=== PATIENT | female | born 1960 | race Caucasian/White ===

== ENCOUNTER → 2018-05-07 | Outpatient (CLI) | payer OTHER ==
[~2018-05-07] MED LIST: METAMUCIL0.4 GM PO
== END ==
LOC: M.CT 15:25
DX: K57.32 Diverticulitis of large intestine without perforation or abscess without bleeding (principal); K76.89 Other specified diseases of liver; N20.0 Calculus of kidney; J98.11 Atelectasis

== ENCOUNTER 2018-06-17 09:37 | Inpatient (IN) | payer OTHER ==
[~2018-06-17] VITALS: Ht 175.3 cm; Wt 74.8 kg
--- NOTE | ~2018-06-17 | CON ---
[facility] [address] [place] [address] CONSULTATION Name: RUTH JACOBS Room: [address] IN M.R.#: [id number] Admission: 06/17/18 Attend Phys: Ian Mccollum Discharge: 06/21/18 Date of : 56 Report #: [id number] THIS REPORT FOR: //name// CC: GUSTAVO Ribeiro MD DATE OF SERVICE: 06/18/2018 REFERRING PHYSICIAN: Vanda López M.D. REASON FOR CONSULTATION: Diverticulitis. IMPRESSION: Recurrent sigmoid diverticulitis, with a strong family history of the same. No history to kidney stones, recurrent kidney stones without evidence for obstruction. RECOMMENDATIONS: 1. Agree with the patient being admitted to the hospital for failing outpatient oral treatment. 2. Surgical consultation will be necessary for possibly elective colon resection in the future due to the poor nature of the same. 3. We will have the dietitian instruct on low-residue diet for the duration of the treatment. 4. I have discussed these plans and recommendations with the patient as well and she is agreeable to the same. 5. We will request records from previous colonoscopy that has been performed in the last couple of years and make sure she will likely have repeat colonoscopy to tattoo the proximal and distal extents of her severe diverticular disease in anticipation of surgical intervention for the same. I have discussed these plans with the patient as well and she is agreeable to the same. HISTORY OF PRESENT ILLNESS: The patient is a very pleasant 58-year-old white female who has been battling problems with diverticulitis since the last couple of months. She states that she was usually having problems towards the first part of April and then eventually went to the hospital for evaluation and underwent laboratory testing and CT scan, which revealed evidence for diverticulitis. She was treated with Cipro and Flagyl for 10 days, starting on 05/07/2018. She completed a course of the same and then had recurrent relapsing issues on 06/07/2018 and again was treated with Cipro and Flagyl for another 10 days. However, she was not getting any better. She also had problems with fevers and chills as well as some constipation. She has a family history of diverticular disease with her sister having had a perforation, her brother having had a colon resection and a paternal [place] [address] CONSULTATION Name: RUTH JACOBS Room: [address] IN [facility].#: [id number] Admission: 06/17/18 Attend Phys: Ian Mccollum Discharge: 06/21/18 Date of : 56 Report #: [id number] the same. She has undergone endoscopic studies of her lower GI tract in the past and thinks her last examination was a couple of years ago, with probably findings of diverticular disease. She was admitted to the hospital now because of problems with persistent issues. She is admitted to the hospital for further evaluation and treatment. The patient also noted that she was having more constipation. She took Dulcolax for 4 days, about one tablet daily for 4 days and did not have any output. I gave her magnesium citrate on the night of admission and she has been passing stool. ALLERGIES: None. MEDICATIONS: Include psyllium husk. PAST MEDICAL HISTORY: Remarkable for recurrent diverticulitis, she had a history of kidney stones. She has cyst on the liver which was removed in the past, tonsillectomy as well. SOCIAL HISTORY: The patient smokes half pack a day, drinks on a weekly basis. FAMILY HISTORY: As above. PHYSICAL EXAMINATION: GENERAL: A pleasant 58-year-old white female, who is awake and alert. CARDIOPULMONARY EXAMINATION: Revealed a regular rate and rhythm. LUNGS: Clear. ABDOMEN: Bloated. She was mildly tender in the lower quadrants. No rebound or guarding noted. LABORATORY DATA: Laboratory tests revealed a white count of 10.0, hemoglobin 13.0, platelet count 404,000, MCV is 89.5 and RDW 13.9. Sodium 142, potassium 4.1, chloride 106, bicarbonate 27, BUN 7, creatinine 0.2 and GFR . Total bilirubin 0.4, alkaline phosphatase 111, AST 13 and ALT 17. Her albumin is 3.5. CT scan of the abdomen and pelvis done on 06/17/2018 revealed circumferential mural thickening and mild pericolonic soft tissue stranding around the proximal sigmoid colon, extending in the distal descending colon secondary to either residual or recurrent diverticulitis. DISCUSSION: 1. At the present time, it is felt that the patient has relapsing diverticulitis in the same segment. She will need to be treated aggressively and if she is not getting better, she may need to have surgical intervention. We will also get her seen by dietitian for a low-residue diet, but keep her on some MiraLax to keep her bowels moving. [address] [address] CONSULTATION Name: RUTH JACOBS Room: [address] IN [facility]#: [id number] Admission: 06/17/18 Attend Phys: Ian Mccollum Discharge: 06/21/18 Date of : 56 Report #: [id number] 2. Otherwise set up for colonoscopy should need at least 10-14 days of antibiotics upon discharge and then probably should undergo repeat CT scan prior to the colonoscopy that should be done towards the end of this year. We will proceed with treating her at this point in time and set things . By: [id number] [id number] Sandhu DO /roshan
[2018-06-17 09:45] VITALS: BP 109/79
[2018-06-17] MEDS ORDERED: METAMUCIL0.4 GM PO (09:49)
[2018-06-17 10:40] LABS: ABSOLUTE BASOPHILS 0.1 thou/uL (0.0-0.2); ABSOLUTE EOSINOPHILS 0.1 thou/uL (0.0-0.7); ABSOLUTE LYMPHOCYTES 1.5 thou/uL (0.8-5.3); ABSOLUTE MONOCYTES 0.4 thou/uL (0.0-1.2); ABSOLUTE NEUTROPHILS 7.9 thou/uL (1.6-8.1); BASOPHILS 0.8 %; HEMATOCRIT 39.8 % (37.0-47.0); LYMPHOCYTES 15.1 %; MCH 29.3 pg (26.0-34.0); MCHC 32.7 g/dL (28.0-37.0); MCV 89.5 fL (80.0-100.0); MONOCYTES 3.8 %; MPV 7.2 fl. (7.2-11.1); NUCLEATED RBCS 0 /100WBC; PLATELET COUNT* 404 thou/uL (150-400); POLYS 79.3 %; RBC 4.44 mil/uL (4.20-5.00); RDW-CV 13.9 % (10.5-14.5)
[2018-06-17 10:46] LABS: CALCIUM 9.6 mg/dL (8.5-10.1); CREATININE 0.8 mg/dL (0.6-1.3); POTASSIUM 4.1 mmol/L (3.5-5.1)
[2018-06-17 10:51] LABS: ALBUMIN 3.5 g/dL (3.4-5.0); TOTAL BILIRUBIN 0.4 mg/dL (<0.1-1.0); TOTAL PROTEIN 7.4 g/dL (6.4-8.2)
[2018-06-17 10:59] LABS: URINE BILIRUBIN NEGATIVE (Negative); URINE BLOOD TRACE (Negative); URINE CLARITY CLEAR; URINE COLOR YELLOW; URINE GLUCOSE-RANDOM NEGATIVE (Negative); URINE KETONES 2+ (Negative); URINE LEUKOCYTES-REFLEX TRACE (Negative); URINE NITRITE-REFLEX NEGATIVE (Negative); URINE PROTEIN NEGATIVE (Negative); URINE SPECIFIC GRAVITY 1.025 (1.005-1.030); URINE UROBILINOGEN 0.2 E.U./dl (0.2-1.0)
[2018-06-17 11:13] LABS: BACTERIA-REFLEX None Seen /HPF (None Seen); CASTS None Seen /LPF (None Seen); CRYSTALS None Seen /LPF (None Seen); MUCUS 0-3 Light strn/LPF (None Seen); SQUAMOUS 0-3 Few /LPF (0-3); URINE RBC None Seen /HPF (0-2); URINE WBC-REFLEX 0-5 Rare /HPF (0-5)
--- NOTE | 2018-06-17 15:39 | NUR ---
PT GIVEN ICE WATER PER REQUEST AND APPROVAL BY DR. GAR FOR CLEAR LIQUIDS ONLY.
[2018-06-17 20:00] VITALS: BP 112/72
[2018-06-17 20:15] VITALS: BP 124/64
--- NOTE | 2018-06-18 06:00 | NUR ---
PATIENT ARRIVED ON THE FLOOR ABOUT 1999 FROM ER. PATIENT ADMISSION HISTORY AND ASSEMENT WAS COMPLETED CHARTED. IV FLUIDS AND ANTIBIOTICS WERE GIVEN ORDERED. PATIENT HAS NOT REQUESTED ANY PAIN MEDICINE THIS SHIFT. PATIENT TOLERATING CLEAR LIQUIDS. PATIENT DID NOT DRINK HER MAG CITRATE. WILL CONTINUE TO MONITOR.
[2018-06-18 07:40] VITALS: BP 116/74
--- NOTE | 2018-06-18 11:44 | NUR ---
SW met with pt to complete initial assessment, introduce self, and SW role. Pt alert, oriented, pleasant. Pt lives at home with her and is independent and active. 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 Pt does not anticipate any dc needs. SW to continue to follow.
[2018-06-18 16:00] VITALS: BP 120/68
--- NOTE | 2018-06-18 18:58 | NUR ---
PATIENT STARTED ON LOW RESIDUE DIET PER GI THIS EVENING, PATIENT ATE ONLY SMALL AMOUNT. IV LEAKING TO LEFT AC THIS AM. ATTEMPTED X [address] IV WITH NO SUCCESS. IV PLACED VIA INFUSION WITH US TO RIGHT UPPER ARM. IVF AND SCHED ABX INFUSED. PATIENT CALLING OUT SEVERAL HOURS LATER STATING ARM WAS SWOLLEN. IV NOTED TO BE INFILTRATED, DC'D. PACU NURSE ATTEMPTED IV AND IV PLACED TO RIGHT HAND. PRN VICODIN GIVEN X 1, NO FURTHER COMPLAINTS OF PAIN NOTED. PATIENT STILL DRINKING MAG CITRATE, NO BM NOTED. SURGERY CONS PLACED AND PATIENT SEEN, NO SURICAL INTERVENTIONS NOTED.
[2018-06-18 21:00] VITALS: BP 101/63
[2018-06-19 05:03] LABS: ABSOLUTE BASOPHILS 0.1 thou/uL (0.0-0.2); ABSOLUTE EOSINOPHILS 0.3 thou/uL (0.0-0.7); ABSOLUTE MONOCYTES 0.4 thou/uL (0.0-1.2); ABSOLUTE NEUTROPHILS 3.4 thou/uL (1.6-8.1); BASOPHILS 1.2 %; HEMOGLOBIN 11.8 gm/dL (12.0-15.0); LYMPHOCYTES 32.6 %; MCH 29.2 pg (26.0-34.0); MCHC 32.7 g/dL (28.0-37.0); MCV 89.2 fL (80.0-100.0); MONOCYTES 6.8 %; MPV 7.9 fl. (7.2-11.1); NUCLEATED RBCS 0 /100WBC; POLYS 54.4 %; RBC 4.03 mil/uL (4.20-5.00); WBC 6.2 thou/uL (4.0-11.0)
[2018-06-19 05:05] LABS: PLATELET COUNT* 324 thou/uL (150-400)
[2018-06-19 05:12] LABS: CALCIUM 8.8 mg/dL (8.5-10.1); CREATININE 0.7 mg/dL (0.6-1.3); POTASSIUM 4.3 mmol/L (3.5-5.1)
[2018-06-19 06:08] LABS: ESR (SEDRATE) 30 mm/hr (0-30)
--- NOTE | 2018-06-19 07:05 | NUR ---
PATIENT SLEPT MOST OF THE NIGHT. IV FLUIDS AND ANTIBIOTICS WERE GIVEN ORDERED. PATIENT HAD NO COMPLAINTS OF PAIN. PATIENT STATED STILL NO BOWEL MOVEMENT. WILL CONTINUE TO MONITOR.
[2018-06-19 08:00] VITALS: BP 109/67
[2018-06-19 15:34] VITALS: BP 98/61
--- NOTE | 2018-06-19 18:02 | NUR ---
PATIENT REMAINS ON FIBER RESTRICTED DIET, TOLERATING SMALL MEALS. IV SL THIS SHIFT, ABX CHANGED TO CIPRO/FLAGYL IV. PER GI PATIENT STARTED ON LUBIPROSTONE FOR CONSTIPATION. NO COMPLAINTS OF PAIN THIS SHIFT.
[2018-06-20 04:22] LABS: CREATININE 0.6 mg/dL (0.6-1.3); MAGNESIUM 2.2 mg/dL (1.8-2.4); POTASSIUM 4.9 mmol/L (3.5-5.1)
--- NOTE | 2018-06-20 06:55 | NUR ---
PATIENT SLEPT MOST OF THE NIGHT. NEW IV WAS STARTED CHARTED. IV ANTIBIOTICS WERE GIVEN ORDERED. PATIENT STATED SHE HAD TWO SMALL BOWEL MOVEMENTS ABOUT THE SIZE OF JELLY BEANS. NO COMPLAINTS OF PAIN. WILL CONTINUE TO MONITOR.
[2018-06-20 08:33] VITALS: BP 104/55
[2018-06-20] MEDS ORDERED: SENNA PLUS TAB1 EACH PO (10:27)
[2018-06-20] MEDS ORDERED: FLAGYL500 M1 PO (10:27)
[2018-06-20] MEDS ORDERED: CIPRO500 MG PO (10:27)
[2018-06-20] MEDS ORDERED: ACIDOPHILUS1 EAC4 PO (10:27)
[2018-06-20 16:00] VITALS: BP 98/54
[2018-06-20 19:45] VITALS: BP 93/50
--- NOTE | 2018-06-21 05:29 | NUR ---
PT SLEPT MOST OF SHIFT. ASSESSMENT DOCUMENTED. MEDS GIVEN PER E-OCT. PT REQUESTED IV BE TAKEN OUT AFTER ABX INFUSION STATING IV SITE WAS GETTING SORE. NO BOWEL MOVEMENT NOTED THIS SHIFT. WILL CONTINUE WITH PLAN OF CARE.
--- NOTE | 2018-06-21 06:59 | NUR ---
PT DOES NOT WANT AN IV ACCESS AT THIS TIME. SHE WOULD PREFER TO SEE IF SHE COULD GET ORAL MEDICATIONS. PT STATES SHE FEELS LIKE SHE WILL GO HOME TODAY BUT IS CONCERNED ABOUT STILL NOT HAVING A BOWEL MOVEMENT.
[2018-06-21 08:00] VITALS: BP 103/65
--- NOTE | 2018-06-21 16:22 | NUR ---
SHIFT NOTE - PT STILL ANTICIPATING DISCHARGE THIS EVENING. WAITING ON GI TO ROUND. PT STILL NOT HAD A BM. PT HAD A KUB IN ROOM THIS AFTERNOON. SPOUSE PRESENT AT BESIDE FOR MOST OF THIS SHIFT.
[2018-06-21 18:16] VITALS: BP 103/65
[2018-06-21] MEDS ORDERED: AMITIZA 24 MCG24 MC1 PO (18:24)
--- NOTE | 2018-06-21 18:30 | NUR ---
CALLED . WAITING ON GI FOR DISCHARGE SINCE YESTERDAY. DISCUSSED CASE WITH . OK FOR DISCHARGE. OK TO CALL IN RX FOR [facility] 24MCG TO [facility] RX [place], [place]. 4 OTHER RX'S GIVEN TO PT. INSTRUCTED THIS NURSE TO TELL PATIENT TO HAVE PT START MIRALAX COLON PREP IN AM. PT TO CALL HIS ANSWERING SERVICE IF NO STOOLS. DISCUSSED DISCHARGE INSTRUCTIONS WITH PT. NO QUESTIONS. IV REMOVED S DIFFICULTY. ALL BELONGINGS SENT WITH PT AND SPOUSE.
== END 2018-06-21 18:45 | disposition home or self-care (01) | DRG 392 ==
LOC: M.ERS 09:37 → M.TBA-ER 15:08 → M.3W 15:08
PROVIDERS: Internal Medicine; Internal Medicine Gastroenterology; Personal Emergency Response Attendant; ADMIT Internal Medicine
DX: K57.32 Diverticulitis of large intestine without perforation or abscess without bleeding (principal); F17.210 Nicotine dependence, cigarettes, uncomplicated; K59.00 Constipation, unspecified; K52.9 Noninfective gastroenteritis and colitis, unspecified; N20.0 Calculus of kidney; Z80.0 Family history of malignant neoplasm of digestive organs; Z87.442 Personal history of urinary calculi; Z79.899 Other long term (current) drug therapy

== ENCOUNTER → 2018-08-01 | Outpatient (CLI) | payer OTHER ==
[~2018-08-01] MED LIST changes: +ACIDOPHILUS1 EAC4 PO; +AMITIZA 24 MCG24 MC1 PO; +CIPRO500 MG PO; +FLAGYL500 M1 PO; +SENNA PLUS TAB1 EACH PO
[2018-08-01 14:42] LABS: CREATININE 0.6 mg/dL (0.6-1.3)
== END ==
LOC: M.LAB 14:20 → M.CT 16:00
PROVIDERS: Physician Assistant
DX: K57.92 Diverticulitis of intestine, part unspecified, without perforation or abscess without bleeding (principal); R10.32 Left lower quadrant pain; Z87.19 Personal history of other diseases of the digestive system

== ENCOUNTER 2018-10-07 05:38 | Inpatient (IN) | payer OTHER ==
[~2018-10-07] VITALS: Ht 175.3 cm; Wt 71.2 kg
--- NOTE | ~2018-10-07 | H ---
[address] [address] HISTORY AND PHYSICAL Name: RUTH JACOBS Room: [address]#: [id number] Admission: 10/07/18 Attend Phys: Titus Coleman DO Discharge: 10/12/18 Date of : 56 Report #: [id number] THIS REPORT FOR: //name// For History and Physical please refer to the handwritten note in the patient's medical record. By: 1519Medical Records Staff MASSIEL /WOODY
[~2018-10-07 05:38] MED LIST changes: +PHILLIPS' COLO1 EACH PO; +PHILLIPS' LAXA100 MG PO
[2018-10-07 06:31] LABS: HEMATOCRIT 36.9 % (37.0-47.0); HEMOGLOBIN 12.1 gm/dL (12.0-15.0); MCH 29.2 pg (26.0-34.0); MCHC 32.9 g/dL (28.0-37.0); MCV 88.9 fL (80.0-100.0); RBC 4.15 mil/uL (4.20-5.00); RDW-CV 13.8 % (10.5-14.5)
[2018-10-07 06:39] VITALS: BP 117/63
[2018-10-07 06:54] LABS: ALBUMIN 3.1 g/dL (3.4-5.0); CALCIUM 8.8 mg/dL (8.5-10.1); CREATININE 0.8 mg/dL (0.6-1.3); POTASSIUM 3.4 mmol/L (3.5-5.1); TOTAL BILIRUBIN 0.4 mg/dL (<0.1-1.0); TOTAL PROTEIN 6.5 g/dL (6.4-8.2)
--- NOTE | 2018-10-07 16:09 | EKG ---
[place] [address] ELECTROCARDIOGRAM REPORT Name: RUTH JACOBS Room: [address] ADM IN M.R.#: [id number] Admission: 10/07/18 Attend Phys: Titus Coleman DO Discharge: Date of : 56 Report #: [id number] THIS REPORT FOR: //name// [facility] Test Date: 2018-10-07 Test Time: 06:43:48 Pat Name: RUTH JACOBS Department: Room: [facility] Gender: F Solid Tire Finisher: JONY : 1960 Requested By: Titus Coleman Order Number: [id number] Jan MD: Thanh Galdamez Measurements Intervals [place] Rate: 61 P: -23 VA: 142 QRS: 54 QRSD: 96 T: 54 QT: 433 QTc: 437 Interpretive Statements Sinus rhythm No previous ECG available for comparison Electronically Signed On 10-07-2018 16:08:51 PROP ATTENDANT by Thanh Galdamez [email or web address] <ELECTRONICALLY SIGNED> By: Thanh Galdamez MD, [facility] 10/07/18 [id number] Thanh Galdamez MD, FACC /EPI
--- NOTE | 2018-10-07 16:12 | EKG ---
[place] [address] ELECTROCARDIOGRAM REPORT Name: RUTH JACOBS Room: [address] ADM IN M.R.#: [id number] Admission: 10/07/18 Attend Phys: Titsu Coleman DO Discharge: Date of : 56 Report #: [id number] THIS REPORT FOR: //name// [facility] Test Date: 2018-10-07 Test Time: 13:47:20 Pat Name: RUTH JACOBS Department: Room: [facility] Gender: F Cardiac Monitor Technician: FRED : 1960 Requested By: Trevor Ovalle Order Number: [id number] Jan MD: Thanh Galdamez Measurements Intervals [place] Rate: 72 P: 55 IA: 147 QRS: 61 QRSD: 127 T: 103 QT: 435 QTc: 477 Interpretive Statements Sinus rhythm Nonspecific intraventricular conduction delay Nonspecific T abnrm, anterolateral leads No previous ECG available for comparison Electronically Signed On 10-07-2018 16:12:32 COMPUTER HELP DESK SPECIALIST by Thanh Galdamez [email or web address] <ELECTRONICALLY SIGNED> By: Thanh Galdamez MD, [facility] 10/07/18 1612 [id number] [id number] Thanh Galdamez MD, FAC /EPI
[2018-10-07 19:56] VITALS: BP 92/53
[2018-10-07 21:15] VITALS: BP 104/52
[2018-10-08] VITALS: BP 98/52
[2018-10-08 04:00] VITALS: BP 93/53
[2018-10-08 04:41] LABS: ABSOLUTE LYMPHOCYTES 1.6 thou/uL (0.8-5.3); ABSOLUTE MONOCYTES 0.5 thou/uL (0.0-1.2); ABSOLUTE NEUTROPHILS 5.8 thou/uL (1.6-8.1); BASOPHILS 0.3 %; EOSINOPHILS 0.1 %; HEMATOCRIT 31.4 % (37.0-47.0); HEMOGLOBIN 10.4 gm/dL (12.0-15.0); LYMPHOCYTES 19.9 %; MCH 29.7 pg (26.0-34.0); MCV 89.9 fL (80.0-100.0); MONOCYTES 6.6 %; MPV 7.7 fl. (7.2-11.1); NUCLEATED RBCS 0 /100WBC; POLYS 73.1 %; RBC 3.49 mil/uL (4.20-5.00); RDW-CV 13.7 % (10.5-14.5); WBC 7.9 thou/uL (4.0-11.0)
[2018-10-08 04:46] LABS: PLATELET COUNT* 259 thou/uL (150-400)
[2018-10-08 05:10] LABS: CALCIUM 8.1 mg/dL (8.5-10.1); CREATININE 0.7 mg/dL (0.6-1.3); POTASSIUM 3.9 mmol/L (3.5-5.1)
[2018-10-08 17:52] VITALS: BP 113/68
[2018-10-08 21:19] VITALS: BP 98/50
[2018-10-09 04:19] VITALS: BP 100/54
[2018-10-09 04:25] LABS: CALCIUM 8.2 mg/dL (8.5-10.1); CREATININE 0.7 mg/dL (0.6-1.3); POTASSIUM 3.7 mmol/L (3.5-5.1)
[2018-10-09 04:30] LABS: HEMATOCRIT 31.2 % (37.0-47.0); HEMOGLOBIN 10.4 gm/dL (12.0-15.0); MCHC 33.2 g/dL (28.0-37.0)
[2018-10-09 04:34] LABS: MCH 29.7 pg (26.0-34.0); MCV 89.5 fL (80.0-100.0); MPV 7.7 fl. (7.2-11.1); RBC 3.49 mil/uL (4.20-5.00); RDW-CV 13.7 % (10.5-14.5); WBC 11.5 thou/uL (4.0-11.0)
[2018-10-09 08:05] VITALS: BP 114/76
[2018-10-09 16:00] VITALS: BP 110/60
[2018-10-09 21:00] VITALS: BP 115/66
[2018-10-10 07:55] VITALS: BP 106/68
[2018-10-10 09:00] LABS: HEMATOCRIT 31.7 % (37.0-47.0); HEMOGLOBIN 10.4 gm/dL (12.0-15.0); MCH 29.5 pg (26.0-34.0); MCHC 32.7 g/dL (28.0-37.0); MCV 90.2 fL (80.0-100.0); MPV 7.7 fl. (7.2-11.1); RBC 3.52 mil/uL (4.20-5.00); RDW-CV 13.4 % (10.5-14.5); WBC 9.2 thou/uL (4.0-11.0)
[2018-10-10 09:29] LABS: CALCIUM 8.8 mg/dL (8.5-10.1); CREATININE 0.7 mg/dL (0.6-1.3); PHOSPHORUS* 3.6 mg/dL (2.5-4.9); POTASSIUM 3.8 mmol/L (3.5-5.1)
--- NOTE | 2018-10-10 11:08 | PATH ---
[place] [address] PATHOLOGY RPT PROCEDURE Name: ROWAN JACOBS Room: [address] IN M.R.#: [id number] Admission: 10/07/18 Date of : 56 Discharge: Report #: [id number] Path Case #: [id number] [facility] Accession Number: [id number] . 01 Material submitted: . SIGMOID COLON . 01 Clinical history: . Diverticulitis large intestine . 02 Diagnosis: Sigmoid colon: - Segment of benign colon with marked diverticular disease including chronic and acute diverticulitis with evidence of perforation, mural abscess formation and acute and chronic serositis. - Two benign colonic tissues consistent with anastomotic rings. See comment. (JAYDA:linsey; 10/09/2018) QMS/10/09/2018 . 02 Comment: The grossly described possible polyps (A3) represents benign redundant colonic mucosal tissues in association with hyperplastic lymphoid follicles (Peyer's patches). (JAYDA:linsey; 10/09/2018) . 02 Electronically signed: . Nicholas Ratliff MD, Pathologist NPI- [id number] . 01 Gross description: . The specimen is received in formalin, labeled "Rowan Jacobs, sigmoid colon" and consists of a unoriented segment of large intestine measuring 26.0 cm in length and ranging from 2.6 cm to 4.5 cm in diameter with pericolic fat lining the entire specimen which measures up to 3.0 cm. One margin is closed with jane while the other is open. The serosa is pink-haque with adhesions/creeping fat and a focal indurated area (5.8 x 4.5 cm) that extends 4.5 cm from the stapled resection margin. Opening reveals a lumen packed with green-brown fecal material. The mucosa is pink-haque with multiple possible polyps measuring between 0.2 cm and 1.0 cm. The wall is thickened/fibrous and further sectioning reveals multiple diverticula ranging from 0.1 cm to 1.2 cm which extend into the pericolic tissue. A pink-red inflamed tract is present which extends for a distance of approximately 10 cm. Also present are 2 anastomotic rings with no orientation. The first measures 1.5 x 1.5 x 1.0 cm (inked blue) and the second measures 2.1 x 1.5 x 0.6 cm. Community Engagement Representative sections are submitted as follows: [place] [address] PATHOLOGY RPT PROCEDURE Name: ROWAN JACOBS Room: [address] IN [facility]#: [id number] Admission: 10/07/18 Date of : 56 Discharge: Report #: [id number] Path Case #: [id number] A1: Open margin A2: Stapled margin A3: 5 possible polyps A4-A6: Community Engagement Representative diverticula to show tract A7: Anastomotic rings (SDY; 10/08/2018) SYU/SYU . 02 Pathologist provided ICD-10: K57.32, K57.30, K65.8 . 02 CPT . 373841 Specimen Comment: A courtesy copy of this report has been sent to Specimen Comment: [phone], . Specimen Comment: Report sent to / DR MCKENNA Specimen Comment: A duplicate report has been generated due to demographic updates. Performed at: 01 [facility] [address], [place], [place] [id number] MD Kings Llamas MD Phone: [phone] Performed at: 02 [facility] [place] [facility] Mónica Rico, [place] [id number] MD Nicholas Ratliff MD Phone: [phone]
[2018-10-10 16:19] VITALS: BP 103/62
[2018-10-11 16:00] VITALS: BP 107/66
[2018-10-12 07:50] VITALS: BP 111/68
[2018-10-12] MEDS ORDERED: AUGMENTIN 500-1 EACH PO (13:21)
[2018-10-12 13:29] VITALS: BP 111/68
--- NOTE | 2018-10-17 00:52 | OP ---
[address] [address] OPERATIVE REPORT Name: SHOAIBNasRUTH Room: [address] IN M.R.#: [id number] Admission: 10/07/18 Attend Phys: Titus Coleman DO Discharge: 10/12/18 Date of : 56 Report #: [id number] THIS REPORT FOR: //name// CC: Titus Stewart DO DATE OF SERVICE: 10/07/2018 REFERRING PHYSICIANS: Marguerite Hines DO and Jass Sandhu DO. PREOPERATIVE DIAGNOSIS: Recurrent sigmoid diverticulitis. POSTOPERATIVE DIAGNOSES: Sigmoid diverticulitis and intra-abdominal adhesions. PROCEDURE: Laparoscopic left hemicolectomy with colorectal anastomosis and takedown of the splenic flexure and lysis of adhesions lasting 45 minutes. SURGEON: Titus Coleman DO. APPLICATION SERVICES MANAGER: Joaquin Jones DO, PGY-3, resident. SECOND SURGERY SCHEDULER: Sarah Iqbal DO, PGY1, resident. ANESTHESIA: General endotracheal. ESTIMATED BLOOD LOSS: 50 mL. COMPLICATIONS: None. DESCRIPTION OF PROCEDURE: After obtaining proper consents and discussing risks and complications with the patient, she was taken to the operating room, laid on the supine position, administered general endotracheal anesthetic. She was then prepped and draped in the usual sterile fashion after being placed in lithotomy position and having a Zuniga catheter inserted. We then performed a timeout. We confirmed the appropriate patient and procedure. Preoperative antibiotics had been given. SCDs were in place. We then made a small supraumbilical skin incision with #11 scalpel blade. This was carried down through the skin into the subcutaneous tissue using electrocautery for hemostasis. Once the fascia was encountered, it was incised along the midline, grasped and elevated with Hilario clamps and divided further. The peritoneum was then bluntly opened using a hemostat. A finger was placed inside the peritoneal cavity to assure that there were no burke-incisional adhesions. Next, 2-0 Vicryl sutures were placed in [id number] fashion to secure the Marin trocar, which was then inserted. Once the trocar was secured in place, [place]uff[place] [address] OPERATIVE REPORT Name: RUTH JACOBS Room: [address] IN R.#: [id number] Admission: 10/07/18 Attend Phys: Titus Coleman, DO Discharge: 10/12/18 Date of : 56 Report #: [id number] insufflation was complete, visual examination of the abdomen was performed. This revealed adhesions along the entire right lower quadrant. There were also significant adhesions in the right upper quadrant and along the entire midline. I was unable to visualize the left upper or lower quadrants at this point. We were able to find an area, which was opened enough to place a 5 mm trocar in the right upper quadrant. We then used a 5 mm scope in the right upper quadrant to attempt to take down the adhesions in the right lower quadrant using electrocautery. Once this was done enough that we could place another trocar, we placed a 12 mm trocar in the right lower quadrant. We then used electrocautery and the camera through the right-sided trocars in order to take down the adhesions along the midline. Once the midline adhesions were taken down, I was able to transfer the camera over to the midline and then using the other two right-sided trocars, I was able to take down the remaining adhesions. All of these adhesions appeared to be just omentum adherent to the abdominal wall, but this was throughout the entire abdomen and the dissection took approximately 45 minutes to an hour just to take down the adhesions. Once this was completed, I was then able to see that there was a large inflamed sigmoid colon in the left lower quadrant. We were unable to identify any tattoos at this point from the patient's recent colonoscopy. The mass in the left lower quadrant was quite firm and extended for a length of approximately 10-15 cm. I began by placing another 5 mm trocar in the suprapubic position and then using electrocautery, I was able to take down a portion of the white line of Toldt along the left pericolic gutter. Once I did this, I was able to use blunt dissection to free up some of the mass. We did have to use some electrocautery along the left side and then blunt dissection again after approximately 45 minutes to an hour of dissecting this area, both from above and below, I was able to free it from the surrounding structures including the left tube and ovary and the left side of the abdominal wall. Once we did bluntly peel this away, we were able to identify the left ureter and it was kept out of harm's way. Once the lateral attachments of the sigmoid colon were freed up, we did start medial dissection. This was carried all the way down to the peritoneal reflection, which was an area below this firm mass where there was a soft normal-appearing rectosigmoid. Once I went through the mesentery using the LigaSure device below the mass, I was able to use an Endo-CAL 60 mm purple load and a second load with a 45 mm purple load to go across the distal rectosigmoid. We then continued our dissection more proximally in the mesentery, I did identify the inferior mesenteric artery and vein and these were divided using the LigaSure device. I then continued the dissection laterally up and around the splenic flexure, there again were adhesions and diverticula noted all the way up to and around the splenic flexure. The attachments at the splenic flexure were cautiously taken down using both blunt dissection as well as electrocautery and the LigaSure as well. At one point, we did elect to go across from the transverse colon more distally. I elevated the gastrocolic omentum and opened the lesser sac. There were numerous adhesions also in the lesser sac and also adhesions of the small bowel to the transverse colon mesentery. These were all cautiously taken down assuring [place] [address] OPERATIVE REPORT Name: RUTH JACOBS PANKAJ Room: [address] IN M.R.#: [id number] Admission: 10/07/18 Attend Phys: Titus Coleman, DO Discharge: 10/12/18 Date of : 56 Report #: [id number] bowel. Once the entire splenic flexure was freed, we elected to perform a mini laparotomy to bring out the specimen. We removed the supraumbilical port and extended this incision large enough to place a medium Seun retractor. Once the Seun was placed, I was able to bring up the large mass through the abdominal wall and we were able to identify an area, which appeared to be adequate for resection. There were some scattered diverticula, but this area was quite soft and was just distal to the area in the transverse colon that was marked with a black tattoo. We used the immunofluorescence feature on our camera to assure that there was good blood supply to the area that we chose for resection and at this point, we divided the transverse colon again just distal to this black alejandro from the previous colonoscopy. We then inserted an anvil for a 31 mm EEA and then stapled across the colon and then we brought the anvil out anterior to the staple line through the tenia coli. We then inserted this back into the peritoneal cavity and once it was inserted back in, we used the Seun trocar and cap to reinsufflate the abdominal cavity. We then attempted to bring this transverse colon down to the rectum for reanastomosis. However, there still appeared to be too much tension, so we continued the dissection more across the transverse colon to free up more colon. In doing so, it appeared that I may have caused some injury to a diverticulum or what appeared to be a diverticulum in the transverse colon. I elected to bring this entire area up through the Seun retractor again and visually inspected. I was then able to also free up more of the transverse colon using hand dissection and electrocautery. We did check this area where it appeared that there was some tenting of the colon. There was no injury identified. I did attempt to squeeze some stool or gas out of that area and there was nothing that came out; however, as a precaution there was a serosal injury, so I oversewed this area with three 2-0 Vicryl sutures. We then dropped everything back into the peritoneal cavity again and then my assistant tennis coach went down below. We insufflated the rectum and assured that there was no leak from the rectal stump. We then sized that and then inserted a 31 mm EEA up through the anus. The spike was opened in the anterior portion of the rectosigmoid and then we attached the anvil to the spike. The EEA was then closed and fired and the anastomosis was performed. The EEA was then removed. There were two good donuts identified. We then bubble tested the area to ensure no leak. The sigmoidoscope was inserted into the anus, clamped across the colon just proximal to the anastomosis and the sigmoidoscopy was used to bubble test the area. There was no leak identified. At this point, we copiously irrigated the abdominal cavity. We placed a 15-Setswana Andrew-Rosales drain, which was secured in place using a 2-0 nylon suture. We then removed all of the remaining trocars. The umbilical fascia was then closed using running #1 looped PDS suture. The subcutaneous tissues of the umbilical incision were closed using 3-0 Vicryl suture. The remaining skin incisions were closed using 4-0 Monocryl subcuticular stitches. [place] [address] OPERATIVE REPORT Name: RUTH JACOBS Room: [address] IN ..#: [id number] Admission: 10/07/18 Attend Phys: Titus Coleman DO Discharge: 10/12/18 Date of : 56 Report #: [id number] injected with 0.5% Marcaine without epinephrine. Sponge, needle and instrument counts were all correct at the end of the procedure. <ELECTRONICALLY SIGNED> By: Titus Coleman DO 10/17/18 0052 [id number] [id number] Coleman DO /nt
== END 2018-10-12 14:30 | disposition home or self-care (01) | DRG 330 ==
LOC: M.TBA 05:38 → M.3W 05:38 → M.PRE 10:01 → M.3W 14:59
PROVIDERS: ADMIT Surgery
PROC: 0DJD8ZZ Inspection of Lower Intestinal Tract, Via Natural or Artificial Opening Endoscopic (ICD-10-PCS; principal; 2018-10-07)
PROC: 0DNU4ZZ Release Omentum, Percutaneous Endoscopic Approach (ICD-10-PCS; principal; 2018-10-07)
PROC: 0DTG4ZZ Resection of Left Large Intestine, Percutaneous Endoscopic Approach (ICD-10-PCS; principal; 2018-10-07)
DX: K57.20 Diverticulitis of large intestine with perforation and abscess without bleeding (principal); E44.1 Mild protein-calorie malnutrition; Z68.23 Body mass index [BMI] 23.0-23.9, adult

== ENCOUNTER 2018-12-25 21:02 | Inpatient (IN) | payer OTHER ==
[~2018-12-25] VITALS: Ht 175.3 cm; Wt 68.0 kg
[~2018-12-25 21:02] MED LIST changes: +AUGMENTIN 500-1 EACH PO
[2018-12-25 21:09] VITALS: BP 125/73
[2018-12-25 21:59] LABS: ABSOLUTE BASOPHILS 0.1 thou/uL (0.0-0.2); ABSOLUTE EOSINOPHILS 0.2 thou/uL (0.0-0.7); ABSOLUTE LYMPHOCYTES 2.2 thou/uL (0.8-5.3); ABSOLUTE MONOCYTES 0.5 thou/uL (0.0-1.2); BASOPHILS 1.2 %; EOSINOPHILS 2.2 %; HEMATOCRIT 35.5 % (37.0-47.0); HEMOGLOBIN 11.7 gm/dL (12.0-15.0); MCH 29.8 pg (26.0-34.0); MCHC 33.1 g/dL (28.0-37.0); MONOCYTES 5.5 %; MPV 7.1 fl. (7.2-11.1); NUCLEATED RBCS 0 /100WBC; PLATELET COUNT* 291 thou/uL (150-400); POLYS 67.1 %; RBC 3.94 mil/uL (4.20-5.00); RDW-CV 14.7 % (10.5-14.5)
[2018-12-25 22:11] LABS: ANION GAP 10 mmol/L (7-16); BUN 10 mg/dL (7-18); CALCIUM 8.4 mg/dL (8.5-10.1); CHLORIDE 108 mmol/L (98-107); CO2 25 mmol/L (21-32); CREATININE 0.7 mg/dL (0.6-1.3); GLUCOSE 111 mg/dL (70-99); POTASSIUM 3.4 mmol/L (3.5-5.1); SODIUM 143 mmol/L (136-145)
[2018-12-25 22:20] LABS: ALBUMIN 3.2 g/dL (3.4-5.0); ALKALINE PHOSPHATASE 105 U/L (46-116); LIPASE 130 U/L (73-393); SGOT 10 U/L (15-37); SGPT 15 U/L (30-65); TOTAL BILIRUBIN 0.2 mg/dL (<0.1-1.0); TOTAL PROTEIN 6.2 g/dL (6.4-8.2); TROPONIN-I LEVEL <0.06 ng/mL (<0.06)
[2018-12-25 23:05] LABS: URINE BILIRUBIN NEGATIVE (Negative); URINE BLOOD NEGATIVE (Negative); URINE CLARITY CLEAR; URINE COLOR YELLOW; URINE GLUCOSE-RANDOM NEGATIVE (Negative); URINE KETONES NEGATIVE (Negative); URINE LEUKOCYTES-REFLEX NEGATIVE (Negative); URINE NITRITE-REFLEX NEGATIVE (Negative); URINE PROTEIN NEGATIVE (Negative); URINE UROBILINOGEN 0.2 E.U./dl (0.2-1.0)
[2018-12-26 01:27] VITALS: BP 115/66
[2018-12-26 10:58] VITALS: BP 92/52
[2018-12-26 12:51] VITALS: BP 110/60
--- NOTE | 2018-12-26 13:53 | NUR ---
PT GIVEN SOAPS SUDS ENEMA. PT TOLERATED WELL
[2018-12-26 16:00] VITALS: BP 107/71
--- NOTE | 2018-12-26 17:37 | EKG ---
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: : 1960 Requested By: Jasbir Granados Order Number: [id number] MD: Dom Nails Measurements Intervals [place] Rate: 83 P: 70 MN: 144 QRS: 71 QRSD: 114 T: 85 QT: 400 QTc: 470 Interpretive Statements Sinus rhythm Atrial premature complex Incomplete right bundle branch block Compared to ECG 10/07/2018 13:47:20 Atrial premature complex(es) now present Incomplete right bundle-branch block now present Intraventricular conduction delay no longer present Electronically Signed On 12-26-2018 17:37:15 CDT by Dom Nails [email or web address] <ELECTRONICALLY SIGNED> By: Dom Nails MD, FAC 12/26/18 1737 07 07 Dom Nails MD, [facility] /EPI
[2018-12-26 20:00] VITALS: BP 118/67
--- NOTE | 2018-12-26 20:16 | NUR ---
I ASSUMED CARE OF THE PATIENT AT 1400 AND SHE WAS OFF THE UNIT FOR SURGERY UNTIL 1730. SHE IS ALERT AND ORIENTED X4 AND IS UP AD TIM. SHE HAS A DECOMPRESSION TUBE HOOKED UP TO LIS AND SHOULD BE IRRIGATED EVERY 4 HOURS WITH 300 CC OF WARM WATER ADN LIS OFF FOR 30 MIN. HOURLY ROUNDING IS COMPLETED AND PATIENT NEEDS ARE MET. PAIN IS MANAGED WITH PRN MEDS. POTASSIUM IS BEING REPLACED. WILL CONTINUE TO MONITOR.
[2018-12-27 05:35] LABS: ABSOLUTE BASOPHILS 0.1 thou/uL (0.0-0.2); ABSOLUTE EOSINOPHILS 0.1 thou/uL (0.0-0.7); ABSOLUTE LYMPHOCYTES 1.3 thou/uL (0.8-5.3); ABSOLUTE MONOCYTES 0.3 thou/uL (0.0-1.2); ABSOLUTE NEUTROPHILS 4.3 thou/uL (1.6-8.1); EOSINOPHILS 1.5 %; HEMATOCRIT 35.1 % (37.0-47.0); HEMOGLOBIN 11.7 gm/dL (12.0-15.0); LYMPHOCYTES 21.9 %; MCH 30.3 pg (26.0-34.0); MCHC 33.4 g/dL (28.0-37.0); MCV 90.7 fL (80.0-100.0); MONOCYTES 5.7 %; MPV 7.4 fl. (7.2-11.1); NUCLEATED RBCS 0 /100WBC; PLATELET COUNT* 261 thou/uL (150-400); POLYS 69.9 %; RBC 3.87 mil/uL (4.20-5.00); RDW-CV 14.3 % (10.5-14.5); WBC 6.1 thou/uL (4.0-11.0)
[2018-12-27 05:41] LABS: CALCIUM 8.2 mg/dL (8.5-10.1); CREATININE 0.7 mg/dL (0.6-1.3); MAGNESIUM 2.3 mg/dL (1.8-2.4); PHOSPHORUS* 3.5 mg/dL (2.5-4.9); POTASSIUM 4.4 mmol/L (3.5-5.1)
[2018-12-27 05:48] LABS: CALCIUM 8.5 mg/dL (8.5-10.1); CREATININE 0.7 mg/dL (0.6-1.3); POTASSIUM 4.5 mmol/L (3.5-5.1); TOTAL BILIRUBIN 0.5 mg/dL (<0.1-1.0); TOTAL PROTEIN 5.7 g/dL (6.4-8.2)
--- NOTE | 2018-12-27 06:53 | NUR ---
THIS NURSE ASSUMES CARE OF PT 12/26/18 AT 1930, THIS NURSE TO PT ROOM WITH [facility] NURSE, PT IS TEARFUL, EXPRESSES THAT SHE WAS ALLOWED TO GET UP AND GO TO THE BATHROOM WITHOOUT ASSIST ON PREVIOUS VISITS, SHE IS THEN PLEASANT AND GRACIOUS, THEN RETURNS TO BEING TEARFUL AGAIN, THE PATIENT STATES "CARRIE JUST HAD A BAD DAY", THIS NURSE REINFORCES THE NEED FOR PT TO CALL FOR ASSISTANCE, PT CONTINUES TO INSIST THAT SHE SHOULD BE ALLOWED TO GET OUT OF BED ON HER OWN, BED ALARM TURNED ON, CALL LIGHT WITHIN REACH, PT COMPLAINS OF LRQ AND LLQ ABD PAIN, RATES IT A 4/10, DENIES NEED FOR INTERVENTION, DENIES NAUSEA, COLONIC DECOMPRESSION TUBE PLACED TO LIS, POTASSIUM REPLACEMENT CONTINUED, THIS NURSE RECEIVES A PHONE CALL FROM THE PATIENT'S SISTER WHO HAS MANY COMPLAINTS ABOUT WATER BEING ON THE FLOOR WHEN SHE WAS HERE DURING THE DAY SHIFT, ABOUT THE PATIENT NOT "GETTING WHAT SHE NEEDS" THE SISTER SAYS SHE WILL COME TO THE HOSPITAL AND STAY TO TAKE CARE OF HER SISTER IF SHE HAS TO, THIS NURSE REPORTS TO THE SISTER THAT THIS NURSE AND THE PATIENT HAVE DISCUSSED HER NEEDS AND HOW SHE WILL GET BACK AND FORTH TO THE BSC THROUGHOUT THE NIGHT, HER iV PUMP HAD BEEN ALARMING BUT HAD BEEN FIXED, AND SHE IS WELCOME TO COME TO THE HOSPITAL IF SHE WANTS TO, THE SISTER WAS ALSO OFFERED TO BE PROVIDED INFORMATION ON HOW TO GO ABOUT MAKING A COMPLAINT, THE SISTER DECLINED TO COME BACK TO THE HOSPITAL AND THANKED THIS NURSE FOR THE CARE PROVIDED TO HER SISTER, PT UP TO BEDSIDE COMMODE SEVERAL TIMES THROUGHOUT THE SHIFT, WITH WATERY BROWN STOOLS AND ADEQUATE URINE OUTPUT, PT DOES NOT FINISH HER MAG CITRATE DUE TO FEAR OF NOT MAKING IT TO THE BEDSIDE COMMODE IN TIME ALTHOUGH ENCOURAGED TO DO SO, COLONIC DECOMPRESSION TUBE REMAINS IN PLACE TO LIS, 300ML FLUSH AT 2200, 0220, AND 0600, PT RESTING IN BED AT THIS TIME, NO S/S ACUTE DISTESS NOTED
[2018-12-27 09:30] VITALS: BP 99/63
--- NOTE | 2018-12-27 14:00 | NUR ---
ALERT AND ORIENTED. STATED SHE LIVES WITH HER . DOES NOT USE ANY DME. WORKS OUTSIDE THE HOME. SHE WILL NOT HAVE ANY DISCHARGE NEEDS. STATED SHE IS FEELING MUCH BETTER.
[2018-12-27 15:32] VITALS: BP 110/70
[2018-12-27 20:00] VITALS: BP 107/53
--- NOTE | 2018-12-28 05:42 | NUR ---
ASSUMED PATIENT CARE AT 1900. PATIENT ALERT AND ORIENTED TIMES FOUR AT THE BEGINNING OF THE SHIFT. NOTED CONFUSION AND WANDERING BEHAVIOR THROUGH THE NIGHT. PATIENT FOUN IN ANOTHER PATIENTS ROOM AT ONE TIME. 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
[2018-12-28 07:45] VITALS: BP 116/74
[2018-12-28] MEDS ORDERED: PHILLIPS' LAXA100 MG PO (08:24)
[2018-12-28] MEDS ORDERED: MIRALAX17 GM PO (08:24)
[2018-12-28 09:58] VITALS: BP 116/74
--- NOTE | 2018-12-28 10:08 | NUR ---
DISCHARGE TO HOME: DISCHARGE INSTRUCTIONS REVIEWED W/ PATIENT. PATIENT STATES VERBALLY OF UNDERSTANDING. SCRIPTS GIVEN TO PATIENT. BELONGINGS GATHERED PER PATIENT. STATES NO PAIN OR BOWEL CONCERNS AT THIS TIME. COPY OF INSTRUCTIONS GIVEN TO PATIENT. IV SL DISCONTINUED W/ CATH TIP INTACT, COTTON BALL/TAPE APPLIED TO SITE. ESCORTED TO HOSPITAL ENTRANCE PER SECOND RN PER PEDIS W/ STEADY, PRETTY GAIT. BELONGINGS WITH PATIENT AND . NO FURTHER NURSING NEEDS VOICED. ~TJRN
--- NOTE | 2019-01-02 11:43 | CON ---
[address] [address] CONSULTATION Name: RUTH JACOBS Room: [address] IN M.R.#: [id number] Admission: 12/25/18 Attend Phys: Tim Bhakta MD Discharge: 12/28/18 Date of : 56 Report #: [id number] THIS REPORT FOR: //name// CC: Titus Mclean MD DATE OF SERVICE: 12/26/2018 REASON FOR CONSULTATION: 1. Suspected large bowel obstruction, likely related to anastomotic stricture -- evaluate for the same. 2. Nausea, vomiting, abdominal distention secondary to #1. 3. Status post laparoscopic sigmoid colon resection for recurrent diverticulitis. 4. Abnormal CAT scan compatible with large bowel obstruction. RECOMMENDATIONS: We will proceed with flexible sigmoidoscopy today to evaluate her distal colon and see if there is anything I can do to help with what appears to be a bowel obstruction at the level of sigmoid colon. We will attempt to, if there is evidence for an anastomotic stricture, balloon dilate this area and decompress the colon as much as possible. I have discussed this plan with the patient well and she is agreeable to the same. HISTORY OF PRESENT ILLNESS: The patient is a pleasant 58-year-old white female who has had bouts of recurrent diverticulitis for which she underwent uneventful surgery back in October 2018, has done well until last couple of weeks when she has noted to have some issues with worsening constipation. She states that prior to surgery, had to use Amitiza on a regular basis, but postoperatively, she did not have to use anything at all; however, over the last couple of days, she was not passing much in the way of air or gas and was concerned about the same. She was seen through the Emergency Room and underwent a CT scan, which was suggestive of a distal colonic obstruction at the level of her anastomosis with dilated loops of the colon all the way to the level of cecum. She has also had problem with nausea and vomiting. She tried a number of different laxatives to get her bowels to move and nothing was working for her. She is admitted to the hospital for further evaluation and treatment. ALLERGIES: None. MEDICATIONS: At home include a probiotic, stool softener and Metamucil. PAST MEDICAL AND SURGICAL HISTORY: Remarkable for diverticular disease and diverticulitis for which she underwent surgical intervention [place] [address] CONSULTATION Name: RUTH JACOBS Room: [address]#: [id number] Admission: 12/25/18 Attend Phys: Tim Bhakta MD Discharge: 12/28/18 Date of : 56 Report #: [id number] has had history of ovarian cyst for which she underwent surgery for the same. Tonsillectomy. She has had a history of kidney stones as well. SOCIAL HISTORY: The patient does not smoke, does not drink alcohol. FAMILY HISTORY: Remarkable for colon cancer in a maternal aunt and other family members who have had colon resections for diverticular disease and other issues. PHYSICAL EXAMINATION: VITAL SIGNS: Stable. CARDIOPULMONARY: Revealed a regular rate and rhythm. LUNGS: Clear. ABDOMEN: Soft, it was distended. She does have positive bowel sounds, but a lot of tympany. She has no peritoneal signs. LABORATORY DATA: From 12/25/2018 revealed a white count of 9.0, hemoglobin 11.7, platelet count 291,000, MCV is 90, RDW is 14.7. Her complete metabolic panel revealed a sodium of 143, potassium 3.4, chloride 108, bicarbonate is 25, her BUN is 10, creatinine is 0.7. Total bilirubin 0.2, alkaline phosphatase 105, AST is 10, ALT 15, albumin is 3.2. CT scan was personally reviewed by me and revealed dilated loops of small and large bowel all the way down to the level of the distal sigmoid colon. There was no evidence for pneumoperitoneum or abdominal or pelvic ascites. There are some scattered cysts throughout the liver, but otherwise the gallbladder, spleen, pancreas, adrenal glands are unremarkable as well as the kidneys and ureters. DISCUSSION: At the present time, the patient has what appears to be a large bowel obstruction, likely related to an anastomotic stricture. We will proceed with flexible sigmoidoscopy today under general endotracheal anesthesia and use fluoroscopy to guide the scope all the way over so we can decompress the colon and potentially place a colonic decompression tube. I discussed the plan with the patient as well and her sister and everyone is agreeable with the same. <ELECTRONICALLY SIGNED> By: Jass Sandhu DO 01/02/19 1143 51 184Jass Sandhu DO /nt
== END 2018-12-28 10:34 | disposition home or self-care (01) | DRG 389 ==
LOC: M.ERS 21:02 → M.TBA-ER 22:55 → M.ORTHSURG 12-26 12:03
PROVIDERS: Emergency Medicine Emergency Medical Services; Internal Medicine; Surgery; ADMIT Family Medicine
PROC: 0D7P8ZZ Dilation of Rectum, Via Natural or Artificial Opening Endoscopic (ICD-10-PCS; principal; 2018-12-26)
DX: K56.609 Unspecified intestinal obstruction, unspecified as to partial versus complete obstruction (principal); E44.1 Mild protein-calorie malnutrition; F17.210 Nicotine dependence, cigarettes, uncomplicated; Z87.442 Personal history of urinary calculi; Z90.49 Acquired absence of other specified parts of digestive tract; Z79.899 Other long term (current) drug therapy; Z90.6 Acquired absence of other parts of urinary tract; Z80.0 Family history of malignant neoplasm of digestive organs

== ENCOUNTER 2019-02-12 13:52 | Emergency (ER) | payer OTHER ==
[~2019-02-12] VITALS: Ht 175.3 cm; Wt 68.0 kg
[~2019-02-12 13:52] MED LIST changes: +MIRALAX17 GM PO
[2019-02-12] MEDS ORDERED: AMITIZA 24 MCG24 MC1 PO (14:02)
[2019-02-12 14:40] LABS: ABSOLUTE EOSINOPHILS 0.1 thou/uL (0.0-0.7); ABSOLUTE MONOCYTES 0.3 thou/uL (0.0-1.2); ABSOLUTE NEUTROPHILS 2.6 thou/uL (1.6-8.1); BASOPHILS 0.8 %; EOSINOPHILS 1.7 %; HEMATOCRIT 40.6 % (37.0-47.0); HEMOGLOBIN 13.5 gm/dL (12.0-15.0); LYMPHOCYTES 38.8 %; MCH 30.4 pg (26.0-34.0); MCHC 33.3 g/dL (28.0-37.0); MCV 91.3 fL (80.0-100.0); MONOCYTES 6.7 %; MPV 6.9 fl. (7.2-11.1); NUCLEATED RBCS 0 /100WBC; PLATELET COUNT* 284 thou/uL (150-400); RBC 4.45 mil/uL (4.20-5.00); RDW-CV 13.5 % (10.5-14.5)
[2019-02-12 14:47] LABS: ANION GAP 8 mmol/L (7-16); BUN 6 mg/dL (7-18); CALCIUM 9.1 mg/dL (8.5-10.1); CHLORIDE 109 mmol/L (98-107); CO2 27 mmol/L (21-32); CREATININE 0.7 mg/dL (0.6-1.3); GLUCOSE 97 mg/dL (70-99); POTASSIUM 4.1 mmol/L (3.5-5.1); SODIUM 144 mmol/L (136-145)
[2019-02-12 14:58] LABS: ALBUMIN 3.6 g/dL (3.4-5.0); ALKALINE PHOSPHATASE 115 U/L (46-116); LIPASE 79 U/L (73-393); SGOT 12 U/L (15-37); SGPT 19 U/L (30-65); TOTAL BILIRUBIN 0.4 mg/dL (<0.1-1.0); TOTAL PROTEIN 6.9 g/dL (6.4-8.2); TROPONIN-I LEVEL <0.06 ng/mL (<0.06)
[2019-02-12 16:33] LABS: URINE BILIRUBIN NEGATIVE (Negative); URINE BLOOD TRACE (Negative); URINE CLARITY CLEAR; URINE COLOR YELLOW; URINE GLUCOSE-RANDOM NEGATIVE (Negative); URINE KETONES TRACE (Negative); URINE LEUKOCYTES-REFLEX NEGATIVE (Negative); URINE NITRITE-REFLEX NEGATIVE (Negative); URINE PROTEIN NEGATIVE (Negative); URINE SPECIFIC GRAVITY <= 1.005 (1.005-1.030); URINE UROBILINOGEN 0.2 E.U./dl (0.2-1.0)
[2019-02-12 18:47] VITALS: BP 105/63
--- NOTE | 2019-02-13 16:58 | EKG ---
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
== END 2019-02-12 18:47 | disposition home or self-care (01) ==
LOC: M.ERS 13:52
PROVIDERS: Emergency Medicine
DX: K59.00 Constipation, unspecified (principal); F17.210 Nicotine dependence, cigarettes, uncomplicated; Z87.442 Personal history of urinary calculi